=== PATIENT | female | born 1975 | race African-American/Black ===

== ENCOUNTER 2022-08-01 11:40 | Inpatient (IN) ==
[2022-08-01] MEDS ORDERED: LABETALOL 20 MG/4 ML SYRINGE IV STA (12:26)
[2022-08-01 12:45] LABS: Albumin 2.8 G/DL (3.4-5.0); Bilirubin,Total 0.4 MG/DL (0.20-1.00); Calcium 8.2 MG/DL (8.5-10.1); Osmolality,Calculated 316.1 MOS/KG (273-304); Potassium 4.3 MMOL/L (3.5-5.1); Total Protein 6.9 G/DL (6.4-8.2)
[2022-08-01] MEDS ORDERED: ASPIRIN 325 MG TABLET PO STA (12:45)
[2022-08-01] MEDS ORDERED: SODIUM CHLORIDE 0.9% 1,000 ML IV STA (12:48)
[2022-08-01 13:02] LABS: PT Patient Result 10.6 SECS (10.1-12.1)
[2022-08-01] MEDS ORDERED: INSULIN REGULAR 100 UNIT/ML IV STA (13:47)
[2022-08-01] MEDS ORDERED: INSULIN REGULAR DRIP 100 ML IV PRN (14:00)
[2022-08-01] MEDS ORDERED: LORazepam 2 MG/1 ML VIAL IV STA (14:22)
[2022-08-01] MEDS ORDERED: LORazepam 2 MG/1 ML VIAL ONE (14:26)
[2022-08-01] MEDS ORDERED: GLUCAGON 1 MG VIAL IM PRN (15:26)
[2022-08-01] MEDS ORDERED: ONDANSETRON 4 MG/2 ML VIAL IV PRN (15:26)
[2022-08-01] MEDS ORDERED: DEXTROSE 10% 250 ML BAG IV PRN (15:34)
[2022-08-01] MEDS: SEVELAMER CARBONATE 800 MG TABLET PO SCH (17:44)
[2022-08-01] MEDS: carvediloL 12.5 MG TABLET PO SCH (17:44)
[2022-08-01 18:45] LABS: Basophils % 0.4 % (0.0-0.8); Eosinophils # 0.3 10*3/uL (0.0-0.87); Eosinophils % 2.5 % (0.00-10.9); Hematocrit 31.4 VOL% (35.7-47.0); Hemoglobin 10.5 GM/DL (12.0-16.0); Immature Granulocytes % 0.7 %; Immature Granulocytes Absolute 0.07 #; Lymphocytes # 1.8 10*3/uL (1.4-4.0); Lymphocytes % 16.9 % (21.3-54.2); Mean Corpuscular HGB Conc 33.4 GM/DL (32-36); Mean Corpuscular Volume 86.7 FL (87-102); Monocytes # 0.7 10*3/uL (0.11-0.8); Monocytes % 6.4 % (1.7-12.7); Neutrophils % 73.1 % (38.7-73.9); Platelet Count 263 T/CUMM (130-400); Red Blood Count 3.62 MC/CUMM (3.8-5.5); Red Cell Distribution Width 13.6 % (9.3-17.3); White Blood Count 10.7 T/CUMM (4-12)
[2022-08-01 18:57] LABS: Potassium 3.3 MMOL/L (3.5-5.1)
[2022-08-01 18:59] LABS: Osmolality,Calculated 293.1 MOS/KG (273-304)
[2022-08-01] MEDS: cloNIDine 0.1 MG TABLET PO SCH (20:20)
[2022-08-01] MEDS: GABAPENTIN 100 MG CAPSULE PO SCH (20:20)
[2022-08-01] MEDS: HEPARIN 5,000 UNIT/1 ML VIAL SUBCUT SCH (20:21)
[2022-08-01 22:43] LABS: Calcium 9.1 MG/DL (8.5-10.1); Osmolality,Calculated 289.4 MOS/KG (273-304)
[2022-08-01] MEDS ORDERED: POTASSIUM CHLORIDE 20 MEQ TABLET PO ONE (22:56)
[2022-08-02] MEDS: INSULIN REGULAR 100 UNIT/ML SUBCUT SCH ×7 (00:55→20:31)
[2022-08-02 05:00] LABS: Basophils # 0.1 10*3/uL (0.0-0.2); Basophils % 0.5 % (0.0-0.8); Eosinophils # 0.6 10*3/uL (0.0-0.87); Hematocrit 28.4 VOL% (35.7-47.0); Hemoglobin 9.7 GM/DL (12.0-16.0); Immature Granulocytes % 0.5 %; Immature Granulocytes Absolute 0.08 #; Lymphocytes # 4.1 10*3/uL (1.4-4.0); Lymphocytes % 27.6 % (21.3-54.2); Mean Corpuscular HGB Conc 34.2 GM/DL (32-36); Mean Corpuscular Volume 83.3 FL (87-102); Mean Platelet Volume 11.3 FL (9.6-12.0); Monocytes # 1.1 10*3/uL (0.11-0.8); Monocytes % 7.2 % (1.7-12.7); Neutrophils % 60.2 % (38.7-73.9); Platelet Count 281 T/CUMM (130-400); Red Blood Count 3.41 MC/CUMM (3.8-5.5); Red Cell Distribution Width 13.2 % (9.3-17.3); White Blood Count 14.9 T/CUMM (4-12)
[2022-08-02 05:24] LABS: Alanine Aminotransferase 17 U/L (13-56); Albumin 2.6 G/DL (3.4-5.0); Alkaline Phosphatase 171 U/L (45-117); Aspartate Amino Transferase 15 U/L (0-37); Bilirubin,Total < 0.39 MG/DL (0.20-1.00); Blood Urea Nitrogen 41 MG/DL (7-18); Calcium 9.2 MG/DL (8.5-10.1); Carbon Dioxide 27 MMOL/L (21-32); Chloride 101 MMOL/L (98-107); Glucose 129 MG/DL (74-106); Potassium 3.4 MMOL/L (3.5-5.1); Sodium 136 MMOL/L (136-145); Total Protein 6.8 G/DL (6.4-8.2)
[2022-08-02] MEDS: cloNIDine 0.1 MG TABLET PO SCH ×2 (08:17→20:31)
[2022-08-02] MEDS: SEVELAMER CARBONATE 800 MG TABLET PO SCH ×3 (08:17→17:16)
[2022-08-02] MEDS: amLODIPine 10 MG TABLET PO SCH (08:17)
[2022-08-02] MEDS: FERROUS SULFATE 325 MG TABLET PO SCH (08:17)
[2022-08-02] MEDS: GABAPENTIN 100 MG CAPSULE PO SCH ×2 (08:17→20:31)
[2022-08-02] MEDS: calcitrioL 0.25 MCG CAPSULE PO SCH (08:17)
[2022-08-02] MEDS ORDERED: POTASSIUM CHLORIDE 20 MEQ TABLET PO ONE (08:22)
[2022-08-02] MEDS: carvediloL 12.5 MG TABLET PO SCH ×2 (08:27→17:16)
[2022-08-02] MEDS: HEPARIN 5,000 UNIT/1 ML VIAL SUBCUT SCH ×2 (08:27→20:30)
[2022-08-02] MEDS: INSULIN GLARGINE 100 UNIT/ML SUBCUT SCH (10:11)
[2022-08-02] MEDS ORDERED: ALTEPLASE 2 MG VIAL IV ONE (13:30)
[2022-08-02] MEDS ORDERED: HEPARIN 10,000 UNIT/10 ML VIAL IV SCH (13:30)
[2022-08-02 15:07] LABS: Hepatitis B Core IgM Quant < 0.05 Index; Hepatitis B Surface Ag Quant < 0.10 Index; Hepatitis B Surface Ag Result Non-Reactive (NonReactive); Hepatitis C Virus Ab Quant 0.03 Index; Hepatitis C Virus Ab Result Non-Reactive (NonReactive)
[2022-08-03 06:40] LABS: Basophils # 0.1 10*3/uL (0.0-0.2); Basophils % 0.5 % (0.0-0.8); Eosinophils # 0.4 10*3/uL (0.0-0.87); Eosinophils % 2.8 % (0.00-10.9); Hematocrit 26.1 VOL% (35.7-47.0); Hemoglobin 8.8 GM/DL (12.0-16.0); Immature Granulocytes Absolute 0.14 #; Lymphocytes # 3.8 10*3/uL (1.4-4.0); Lymphocytes % 27.8 % (21.3-54.2); Mean Corpuscular HGB Conc 33.7 GM/DL (32-36); Mean Platelet Volume 11.5 FL (9.6-12.0); Monocytes % 7.3 % (1.7-12.7); Neutrophils % 60.6 % (38.7-73.9); Platelet Count 228 T/CUMM (130-400); Red Blood Count 3.07 MC/CUMM (3.8-5.5); Red Cell Distribution Width 13.9 % (9.3-17.3); White Blood Count 13.5 T/CUMM (4-12)
[2022-08-03 07:01] LABS: Calcium 8.5 MG/DL (8.5-10.1); Osmolality,Calculated 292.4 MOS/KG (273-304); Potassium 3.7 MMOL/L (3.5-5.1); Risk Ratio 4.26
[2022-08-03 07:25] VITALS: BP 113/69
[2022-08-03] MEDS: INSULIN REGULAR 100 UNIT/ML SUBCUT SCH (08:21)
[2022-08-03] MEDS: SEVELAMER CARBONATE 800 MG TABLET PO SCH (08:22)
[2022-08-03] MEDS: carvediloL 12.5 MG TABLET PO SCH (08:22)
[2022-08-03] MEDS: cloNIDine 0.1 MG TABLET PO SCH (08:22)
[2022-08-03] MEDS: calcitrioL 0.25 MCG CAPSULE PO SCH (08:22)
[2022-08-03] MEDS: GABAPENTIN 100 MG CAPSULE PO SCH (08:22)
[2022-08-03] MEDS: amLODIPine 10 MG TABLET PO SCH (08:22)
[2022-08-03] MEDS: FERROUS SULFATE 325 MG TABLET PO SCH (08:23)
[2022-08-03] MEDS: HEPARIN 5,000 UNIT/1 ML VIAL SUBCUT SCH (08:23)
[2022-08-03] MEDS: INSULIN GLARGINE 100 UNIT/ML SUBCUT SCH (08:26)
[2022-08-03] MEDS ORDERED: SIMVASTATIN 10 MG TABLET PO SCH (09:00)
== END 2022-08-03 12:50 | disposition home or self-care (01) | DRG 637 ==
LOC: N.ED 11:40 → N.EDINP 15:27 → SUATTDRO 15:27 → N.ICU 16:57 → N.2E 08-02 15:30
PROVIDERS: ADMIT Family Medicine; ATTEND Hospitalist